=== PATIENT | male | born 1960 | race Asian ===

== ENCOUNTER 2016-05-21 21:29 | Emergency (ER) | payer SELFPAY ==
[~2016-05-21] VITALS: Ht 172.7 cm; Wt 72.6 kg
[2016-05-21 21:50] VITALS: BP 147/97
[2016-05-21] MEDS ORDERED: IBUPROFEN600 MG ORAL (22:38)
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
[2016-05-21 22:51] VITALS: BP 147/97
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
== END 2016-05-21 22:53 | disposition home or self-care (01) ==
LOC: EDBD 21:29 → EMR 22:10
DX: S40.011A Contusion of right shoulder, initial encounter (principal); S80.11XA Contusion of right lower leg, initial encounter; V03.90XA Pedestrian on foot injured in collision with car, pick-up truck or van, unspecified whether traffic or nontraffic accident, initial encounter; Y92.410 Unspecified street and highway as the place of occurrence of the external cause; Y99.8 Other external cause status
CPT/HCPCS: 99283